=== PATIENT | male | born 1965 | race Caucasian/White ===

== ENCOUNTER 2017-02-19 13:46 | Emergency (ER) | payer OTHER ==
[2017-02-19 13:49] VITALS: BP 134/88; PULSE 75; TEMP 97.9; BMI 29.0
--- NOTE | 2017-02-19 14:27 | PDOC ---
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 Occurred: reports: just prior to arrival Past History - Past Medical History Allergies/Adverse Reactions: Allergies Allergy/AdvReac Type Severity Reaction Status Date / Time No Known Allergies Allergy Verified 02/19/17 13:49 Home Medications: Ambulatory Orders NK [No Known Home Medication] 04/02/16 Other medical history: denies - Psycho/Social/Smoking Cessation Hx Anxiety: No Suicidal Ideation: No Smoking Status: No Smoking History: Never smoked Number of Cigarettes Smoked Daily: 0 Information on smoking cessation initiated: No Hx Alcohol Use: No Drug/Substance Use Hx: No Substance Use Type: None *Physical Exam - Vital Signs Last Vital Signs Temp Pulse Resp BP Pulse Ox 97.9 F 75 18 134/88 98 02/19/17 13:47 02/19/17 13:47 02/19/17 13:47 02/19/17 13:47 02/19/17 13:47 - Physical Exam General Appearance: Yes: Nourished, Appropriately Dressed HEENT: positive: EOMI, MAYRA Extremity: positive: Normal Capillary Refill, Normal Inspection, Normal Range of Motion, Tender (tender to touch at the midtarsal joint, no swelling or deformtiy nv intact) Integumentary: positive: Normal Color, Dry, Warm Neurologic: positive: Fully Oriented, Alert, Normal Mood/Affect, Normal Response , Motor Strength 5/5 ED Treatment Course - RADIOLOGY Radiology Studies Ordered: Category Date Time Status ANKLE & FOOT-LEFT* [RAD] Stat Radiology 02/19/17 14:09 Taken Medical Decision Making - Medical Decision Making 02/19/17 14:26 cc: twisted foot slipped on wet floor at work tender to touch left foot no deformity or swelling will xray pt refused motrin *DC/Admit/Observation/Transfer Diagnosis at time of Disposition: Sprain of foot Qualifiers: Encounter type: initial encounter Laterality: left Qualified Code(s): S93.602A - Unspecified sprain of left foot, initial encounter - Discharge Dispostion Disposition: HOME Condition at time of disposition: Good - Referrals Referrals: Fuad Varghese [Primary Care Provider] - Trip Otto MD [Staff Physician] - - Patient Instructions Additional Instructions: follow with the orthopedist if symptoms worsen or persist take motrin as needed for any pain elevate and apply ice to the area of pain every 2hrs for 15 minutes for the next 2 days while awake follow with employee health as per protocol in your department
== END 2017-02-19 14:40 | disposition home or self-care (01) ==
LOC: JERFT 13:46
DX: S93.602A Unspecified sprain of left foot, initial encounter (principal); W01.0XXA Fall on same level from slipping, tripping and stumbling without subsequent striking against object, initial encounter; Y93.89 Activity, other specified; Y92.29 Other specified public building as the place of occurrence of the external cause; Y99.0 Civilian activity done for income or pay
CPT/HCPCS: 73610-TC-LT; 73630-TC-LT; 99281-25

== ENCOUNTER 2019-02-14 14:00 | Emergency (ER) | payer OTHER ==
[2019-02-14 14:04] VITALS: BP 133/87; PULSE 69; TEMP 98.2; BMI 29.2
--- NOTE | 2019-02-14 14:08 | PDOC ---
History of Present Illness - General Chief Complaint: Injury Stated Complaint: YFD Time Seen by Provider: 02/14/19 14:05 History Source: Patient Exam Limitations: Clinical Condition - History of Present Illness Initial Comments: 02/14/19 14:38 Patient with no significant past medical history present for evaluation of left ankle pain status post twisting her ankle while walking over an hour ago. Patient reported ankle pain is resolved now. Denies any other symptoms Timing/Duration: 1 hour Past History - Past Medical History Allergies/Adverse Reactions: Allergies Allergy/AdvReac Type Severity Reaction Status Date / Time No Known Allergies Allergy Verified 02/14/19 14:03 Home Medications: Ambulatory Orders Naproxen 500 mg PO BID PRN #12 tablet 02/14/19 COPD: No - Suicide/Smoking/Psychosocial Hx Smoking Status: No Smoking History: Never smoked Number of Cigarettes Smoked Daily: 0 Hx Alcohol Use: No Drug/Substance Use Hx: No Substance Use Type: None Review of Systems - Review of Systems Able to Perform ROS?: Yes Is the patient limited Serbian proficient: No Constitutional: No: Malaise, Weakness HEENTM: No: Symptoms Reported Respiratory: No: Symptoms reported Cardiac (ROS): No: Symptoms Reported ABD/GI: No: Symptoms Reported Musculoskeletal: Yes: Symptoms Reported, See HPI, Joint Pain (left ankle ), Muscle Pain (left ankle pain resolved) Neurological: No: Numbness, Paresthesia, Tingling All Other Systems: Reviewed and Negative *Physical Exam - Vital Signs Last Vital Signs Temp Pulse Resp BP Pulse Ox 98.2 F 69 18 133/87 97 02/14/19 14:00 02/14/19 14:00 02/14/19 14:00 02/14/19 14:00 02/14/19 14:00 - Physical Exam Comments: 02/14/19 14:07 GENERAL: Well developed, well nourished. Awake and alert. No acute distress. CARDIOVASCULAR: Regular rate and rhythm. No murmurs, rubs, or gallops. PULMONARY: No evidence of respiratory distress. MUSCULOSKELETAL : No tenderness to left ankle or foot. No swelling or ecchymosis to foot or ankle. No bony deformities EXTREMITIES: No cyanosis. No clubbing. No edema. No calf tenderness. SKIN: Warm and dry. Normal capillary refill. No bruising or ecchymosis NEUROLOGICAL: Alert, awake, appropriate. No motor deficits in the lower extremities. Gait is normal without ataxia. PSYCHIATRIC: Cooperative. Good eye contact. Appropriate mood and affect. General Appearance: Yes: Nourished, Appropriately Dressed. No: Apparent Distress ED Treatment Course - RADIOLOGY Radiology Studies Ordered: Category Date Time Status ANKLE & FOOT-LEFT* [RAD] Stat Radiology 02/14/19 14:05 Ordered Medical Decision Making - Medical Decision Making 02/14/19 14:38 Patient with no significant past medical history present for evaluation of left ankle pain status post twisting her ankle while walking over an hour ago. Patient reported ankle pain is resolved now. Denies any other symptoms Exam significant for no tenderness of swelling to left ankle or foot. X-ray of left ankle and foot shows no acute pathology. Patient reported no pain now is stable for discharge to take naproxen as needed for pain *DC/Admit/Observation/Transfer Diagnosis at time of Disposition: Left ankle pain Qualifiers: Chronicity: acute Qualified Code(s): M25.572 - Pain in left ankle and joints of left foot - Discharge Dispostion Disposition: HOME Condition at time of disposition: Stable Decision to Admit order: No - Prescriptions Prescriptions: Naproxen 500 mg PO BID PRN #12 tablet PRN Reason: pain - Referrals Referrals: Christopher Licona DO [Staff Physician] - - Patient Instructions Printed Discharge Instructions: DI for Ankle Sprain Additional Instructions: Your x-ray was normal. Symptoms likely ankle sprain. Take prescribed medication as needed for pain. Follow-up referred orthopedics if symptoms worsens - Post Discharge Activity
== END 2019-02-14 14:35 | disposition home or self-care (01) ==
LOC: JERFT 14:00
DX: M25.572 Pain in left ankle and joints of left foot (principal); X50.1XXA Overexertion from prolonged static or awkward postures, initial encounter; Y93.89 Activity, other specified; Y92.89 Other specified places as the place of occurrence of the external cause; Y99.0 Civilian activity done for income or pay
CPT/HCPCS: 73610-TC-LT-FY; 73630-TC-LT; 99281-25

== ENCOUNTER 2019-05-06 04:35 | Emergency (ER) | payer OTHER ==
[2019-05-06 04:49] VITALS: TEMP 98.5; BMI 29.2
[2019-05-06] MEDS ORDERED: KETOROLAC TROMETHAMINE 60 MG/2 ML VIAL IM ONE (05:46)
--- NOTE | 2019-05-06 05:51 | PDOC ---
History of Present Illness - General Chief Complaint: Back Pain Stated Complaint: BACK PAIN-YFD Time Seen by Provider: 05/06/19 05:45 - History of Present Illness Initial Comments: Ray Barillas is a 53yo man with no medical history who presents with left back pain after picking up a ladder at work. He states that the ladder is quite heavy , and he picked it up and twisted to the side. He had immediate onset of 5/10 pain in the left back muscles. He reports similar symptoms in the past when lifting heavy objects or twisting his back, and his pain has always improved with ibuprofen. He currently denies any LE weakness, numbness/tingling. incontinence, or difficulty walking. Past History - Past Medical History Allergies/Adverse Reactions: Allergies Allergy/AdvReac Type Severity Reaction Status Date / Time No Known Allergies Allergy Verified 05/06/19 04:42 Home Medications: Ambulatory Orders Naproxen 500 mg PO BID PRN #12 tablet 02/14/19 Methylprednisolone [Medrol Dose Sky] 4 mg PO ASDIR #21 tablet 05/06/19 Naproxen 500 mg PO Q12H PRN #14 tablet 05/06/19 COPD: No - Suicide/Smoking/Psychosocial Hx Smoking Status: No Smoking History: Never smoked Number of Cigarettes Smoked Daily: 0 Hx Alcohol Use: No Drug/Substance Use Hx: No Substance Use Type: None Review of Systems - Review of Systems Comments:: General: No fevers, no chills, no weight or appetite change, no malaise HEENT: No changes in vision, no changes in hearing, no congestion, no sore throat CV: No chest pain, no palpitations, no LE edema Pulm: No SOB, no cough, no wheezing GI: No nausea or vomiting, no change in bowel habits, no melena : No frequency, no urgency, no dysuria Musc: No back pain, no joint swelling, no recent injury Skin: No rash, no lesions, no erythema Endo: No excessive thirst, no heat/cold intolerance Heme: No unusual bruising or bleeding, no swollen glands Neuro: No syncope, no numbness/tingling, no focal weakness Vasc: No claudication Psych: No recent change in mood, no SI or HI *Physical Exam - Vital Signs Last Vital Signs Temp Pulse Resp BP Pulse Ox 98.5 F 74 18 141/99 99 05/06/19 04:40 05/06/19 04:40 05/06/19 04:40 05/06/19 04:40 05/06/19 04:40 - Physical Exam Comments: General: Comfortable, no acute distress HEENT: Atraumatic, PERRL, EOMI, MMM, voice normal Cards: RRR, no murmur appreciated Pulm: Comfortable on room air Abd: Soft, nontender, nondistended Back: TTP over left paraspinal muscles. No midline tenderness. No step off or deformity. Ext: Atraumatic. No LE edema. ROM intact. Strength 5/5 and equal bilaterally. Reflexes 2+ and equal bilaterally at knees Vasc: Extremities WWP. Skin: Normal color, no rashes or lesions Neuro: A&Ox3, CN grossly intact, normal speech, motor/sensory grossly intact and symmetric Psych: Mood appropriate to situation Medical Decision Making - Medical Decision Making 05/06/19 05:46 Ray Barillas is a 53yo man with no medical history who presents with onset of pain in the left back muscles after lifting a heavy ladder at work. - Most likely muscle spasm. TTP over right paraspinal muscles - No midline pain suggesting injury - No neurological symptoms concerning for spinal injury - Toradol for pain 05/06/19 06:37 - Pain has not improved. Decadron IM ordered - Will reassess 05/06/19 07:13 - Pain improved to 4/10 from 10. - Requesting to be discharged home - Discussed home care, follow up, return precautions at length. Discussed with Dr Patricia Goldman PGY2 *DC/Admit/Observation/Transfer Diagnosis at time of Disposition: Back strain Qualifiers: Encounter type: initial encounter Qualified Code(s): S39.012A - Strain of muscle, fascia and tendon of lower back, initial encounter - Discharge Dispostion Disposition: HOME Condition at time of disposition: Stable Decision to Admit order: No - Prescriptions Prescriptions: Methylprednisolone [Medrol Dose Sky] 4 mg PO ASDIR #21 tablet Naproxen 500 mg PO Q12H PRN #14 tablet PRN Reason: Pain - Referrals Referrals: Fuad Varghese [Primary Care Provider] - - Patient Instructions Printed Discharge Instructions: DI for Back Spasm Additional Instructions: Discharge Instructions: You were seen in the emergency department for back pain. This is most likely due to a muscle spasm or strain. Home Care and Follow Up: - You have been prescribed naproxen that may be used every 12 hours at home as needed for pain. Take this medication with food. - If you have continued pain, you may also take acetaminophen 650-1000mg every 6 -8 hours. This can be combined with the naproxen - If you still have continued pain after 2-3 days, you have been prescribed an anti-inflammatory medication called a Medrol dose pack. Take this as directed for continued pain. - You may buy a numbing patch that contains lidocaine (the patch is 4% lidocaine ) that can be placed over the areas of greatest pain. The lidocaine patch may be placed for 12 hours then removed for 12 hours. - Try using an ice pack for 20 minutes every hour or a heating pad for additional pain control. These should NOT be used over the lidocaine patch, but you may place them over the areas of pain while the patch is off. - Do not stop moving around. As much as you can tolerate, continue to do light exercise and stretching exercises. Increase your activity level as much as you can tolerate daily. - If your pain does not improve over the next week, see your regular doctor for follow up. - Seek immediate medical care if you have significant worsening of your symptoms , you are unable to walk, you have weakness in your legs, you have bowel or bladder incontinence, or you have any other medical emergency. - Post Discharge Activity Forms/Work/School Notes: Back to Work
[2019-05-06] MEDS ORDERED: KETOROLAC TROMETHAMINE 60 MG/2 ML VIAL ONE (05:57)
--- NOTE | 2019-05-06 05:58 | PDOC ---
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
[2019-05-06] MEDS ORDERED: DEXAMETHASONE SOD PHOSPHATE 10 MG/1 ML VIAL IM ONE (06:36)
[2019-05-06] MEDS ORDERED: DEXAMETHASONE SOD PHOSPHATE 10 MG/1 ML VIAL ONE (06:43)
[2019-05-06 06:50] VITALS: BP 136/95; PULSE 90
== END 2019-05-06 07:11 | disposition home or self-care (01) ==
LOC: JER 04:35
PROC: 3E0233Z Introduction of Anti-inflammatory into Muscle, Percutaneous Approach (ICD-10-PCS; principal; 2019-05-06)
PROC: 3E023GC Introduction of Other Therapeutic Substance into Muscle, Percutaneous Approach (ICD-10-PCS; 2019-05-06)
DX: S39.012A Strain of muscle, fascia and tendon of lower back, initial encounter (principal); X50.0XXA Overexertion from strenuous movement or load, initial encounter; Y93.89 Activity, other specified; Y92.9 Unspecified place or not applicable
CPT/HCPCS: 99281-25; J1100